=== PATIENT | male | born 1945 | race Caucasian/White ===

== ENCOUNTER 2018-09-14 23:15 | Inpatient (IN) | payer MEDICARE, MEDICAID ==
[~2018-09-14] VITALS: Ht 175.3 cm; Wt 68.0 kg
[2018-09-14] MEDS ORDERED: normal saline 1000ml 1,000 ML IV ONE (23:50)
[2018-09-14] MEDS ORDERED: CALC-855 PO (23:57)
[2018-09-14] MEDS ORDERED: CHOL10002 PO (23:57)
[2018-09-14] MEDS ORDERED: ASPI-1265 PO (23:57)
[2018-09-14] MEDS ORDERED: ALBU8.5H8 INH (23:57)
[2018-09-14] MEDS ORDERED: TIOT4MIS5 INH (23:57)
[2018-09-14] MEDS ORDERED: IPRA3AMP9 IH (23:57)
[2018-09-14] MEDS ORDERED: ATOR80TA PO (23:57)
[2018-09-14] MEDS ORDERED: BUPR150T8 PO (23:57)
[2018-09-14] MEDS ORDERED: FLUT1DIS4 INH (23:57)
[2018-09-14] MEDS ORDERED: LISI-600 PO (23:57)
[2018-09-14] MEDS ORDERED: LORA10TA61 PO (23:57)
[2018-09-14] MEDS ORDERED: MELA3TAB64 PO (23:57)
[2018-09-14] MEDS ORDERED: LINA5TAB4 PO (23:57)
[2018-09-14] MEDS ORDERED: PIOG30TA71 PO (23:57)
[2018-09-15] VITALS (19 sets, daily range): BP systolic 123–166; BP diastolic 36–79
[2018-09-15 00:09] LABS: CLARITY,URINE CLEAR (Clear); COLOR,URINE YELLOW (Yellow); GLUCOSE, URINE 250 mg/dl (Neg); KETONES,URINE TRACE mg/dl (Neg); LEUKOCYTE ESTERASE ,URINE NEGATIVE (Neg); NITRITES, URINE NEGATIVE (Neg); OCCULT BLOOD,URINE LARGE (Neg); PH,URINE 5.5 (4.8-8.0); PROTEIN,URINE >=300 mg/dl (Neg); UROBILINOGEN,URINE 0.2 E.U/dL (0.2-1.0)
[2018-09-15 00:10] LABS: UA COLLECTION TYPE FOLEY CATH
[2018-09-15 00:16] LABS: BACTERIA,URINE NONE SEEN /HPF (Neg); FINE GRANULAR CAST 0-3 /LPF (NEGATIVE); HYALINE CASTS 0-3 /LPF (NEGATIVE); MUCUS STRANDS NONE SEEN /LPF (Neg); SQUAMOUS EPITHELIAL CELL,UR NONE SEEN /LPF (FEW); TRANSITIONAL EPI CELLS,URINE FEW /HPF; WBC,URINE 0-4 /HPF (0-4)
--- NOTE | 2018-09-15 00:29 | NUR ---
Patient family contact information: Virgen (Granddaughter) [phone] and Kiran [phone]
[2018-09-15] MEDS ORDERED: morphine 4 MG/ML inj SYRINge IV ONE (00:40)
[2018-09-15] MEDS ORDERED: morphine 2 MG/ML inj. syringe IV PRN (00:40)
--- NOTE | 2018-09-15 00:48 | NUR ---
Patient transferred to ortho bed. Patient complains of increased pain. 4mg of morphine given. Will continue to monitor need for addition medications.
[2018-09-15] MEDS: normal saline 1000ml 1,000 ML IV SCH ×3 (02:14→22:57)
[2018-09-15] MEDS ORDERED: HYDROmorphone 1 mg/ml syringe IV PRN (02:15)
[2018-09-15] MEDS ORDERED: bisacodyl 10mg suppository rectal RC PRN (02:15)
[2018-09-15] MEDS ORDERED: acetaminophen 325mg tablet PO PRN (02:15)
[2018-09-15] MEDS ORDERED: magnesium hydroxide 30ml (MOM) UD suspension PO PRN (02:15)
[2018-09-15] MEDS ORDERED: potassium Cl 20 mEq SR tablet PO PRN ×2 (02:15)
[2018-09-15] MEDS ORDERED: magnesium 4gm in 100ml NS 100 ML IV PRN (02:15)
[2018-09-15] MEDS ORDERED: magnesium 2GM in 50ml NS 50 ML IV PRN (02:15)
[2018-09-15] MEDS ORDERED: magnesium Cl slow-release 64mg tablet PO PRN (02:15)
[2018-09-15] MEDS ORDERED: ondansetron/PF 4mg/2ml inj IV PRN (02:15)
[2018-09-15] MEDS ORDERED: potassium CL 10mEq/100ml bag 100 ML IV PRN ×2 (02:15)
[2018-09-15] MEDS ORDERED: dextrose 50%-water 50ml dispensing syringe IV PRN ×2 (02:30)
[2018-09-15] MEDS ORDERED: MESSAGE TO PHARMACY PO ONE (02:30)
[2018-09-15] MEDS ORDERED: insulin Lispro (HumaLOG) vial - multi-dose SQ SCH (02:30)
[2018-09-15] MEDS ORDERED: glucagon, human recombinant 1mg kit SUBCUT PRN (02:30)
[2018-09-15] MEDS ORDERED: dextrose ORAL solution 15 GM/59 ML bottle PO PRN ×2 (02:30)
--- NOTE | 2018-09-15 05:45 | NUR ---
In agreement with all charting and medication administration reviewed for this shift completed by Meche BARRAGAN.
--- NOTE | 2018-09-15 06:00 | NUR ---
Gave report to Ann BARRAGAN (Flonaty from Critical Care) with Sharon BARRAGAN. Addendum: 09/15/18 at 0622 by Meche Rangel RN report to Rubi BARRAGAN.
[2018-09-15 06:37] LABS: BASOPHILS % (AUTO) 0.3 % (0-1); EOSINOPHILS % (AUTO) 0.1 % (0-6); HEMOGLOBIN 11.3 g/dl (14.0-17.9); LYMPHOCYTES # (AUTO) 0.8 X10'3 (1.1-4.8); LYMPHOCYTES % (AUTO) 5.6 % (21-51); MEAN CORPUSCULAR HGB CONC 33.3 g/dL (33.0-36.5); MEAN CORPUSCULAR VOLUME 87.1 FL (78-98); MEAN PLATELET VOLUME 9.3 FL (7.4-10.4); MONOCYTES # (AUTO) 1.3 X10'3 (0-0.9); MONOCYTES % (AUTO) 9.6 % (2-12); NEUTROPHILS # (AUTO) 11.5 X10'3 (1.8-7.7); NEUTROPHILS % (AUTO) 84.4 % (42-75); PLATELET COUNT 168 X10'3 (140-440); RED CELL DISTRIBUTION WIDTH 15.5 % (11.5-14.5); WHITE BLOOD COUNT 13.6 X10'3 (4.5-11.0)
[2018-09-15 06:50] LABS: ALBUMIN 1.7 G/DL (3.4-5.0); ANION GAP 10 (8-16); BLOOD UREA NITROGEN 35 MG/DL (7-18); CALCIUM 8.1 MG/DL (8.5-10.1); CHLORIDE 111 MMOL/L (99-107); CREATININE 1.84 MG/DL (0.60-1.10); GLUCOSE 171 MG/DL (70-104); MAGNESIUM 1.3 MG/DL (1.5-2.4); POTASSIUM 4.3 MMOL/L (3.5-5.1); SODIUM 146 MMOL/L (135-145); TOTAL CARBON DIOXIDE 25.3 MMOL/L (24-32); eGFR 36 ML/MIN
[2018-09-15] MEDS: K and/or MAG REPLACEMENT MC SCH (08:00)
[2018-09-15] MEDS: docusate sod 100mg capsule PO SCH ×2 (08:00→19:21)
[2018-09-15] MEDS ORDERED: ringers solution, lacted 1,000 ML IV ONE (08:04)
[2018-09-15] MEDS ORDERED: pneumococcal 23-VAL P-sac vacc 25 mcg/0.5ml vial IMVAC ONE (10:00)
--- NOTE | 2018-09-15 12:58 | NUR ---
[facility] [place] Ancef w/pt chart pre-op.
[2018-09-15] MEDS ORDERED: ceFAZolin 1GM/D5W- ADD-VANTAGE 50 ML IV ONE (13:00)
--- NOTE | 2018-09-15 13:49 | NUR ---
DM Consult: Pt admit s/p fall w/ L hip fx NPO to OR today for repair. Hx DM A1C 7.0; pt will need DM/high protein eds once stable post-op. Will continue to monitor. Addendum: 09/15/18 at [address] Amended: Links added.
[2018-09-15] MEDS ORDERED: ipratropium/albuterol 3ml nebule NEB ONE (14:10)
[2018-09-15] MEDS ORDERED: midazolam 2 mg/2 ml injection ONE (15:01)
[2018-09-15] MEDS ORDERED: fentaNYL/PF 50MCG/1 ML 2ML syringe ONE (15:01)
[2018-09-15] MEDS ORDERED: ceFAZolin 1000mg inj ONE (15:19)
[2018-09-15] MEDS ORDERED: BUPIVAcaine/PF 7.5mg/ml (0.75%) 10ml vial ONE (15:38)
--- NOTE | 2018-09-15 15:45 | NUR ---
Received from OR via , accompanied by Anesthesiologist DR WHITAKER and report given by Anesthesiolgist. PT IS AWAKE, ALERT, MOVING BILAT UE'S, LE'S UNABLE TO MOVE DUE TO SPINAL, SENSATION AT T10, ACCUCHECK COMPLETED (139), TENORIO TO GRAVITY, CLEAR YELLOW, PIV RIGHT FA 20G, +2 PEDAL PULSES BILAT, SCD'S, VSS, NO C/O PAIN
[2018-09-15] MEDS: ceFAZolin 1GM/D5W- ADD-VANTAGE 50 ML IV SCH ×2 (16:00→23:03)
--- NOTE | 2018-09-15 18:15 | NUR ---
Received report from Rubi BARRAGAN, assumed care of patient with Sharon BARRAGAN
[2018-09-15] MEDS: traMADol 50MG tablet PO PRN (19:21)
[2018-09-15] MEDS: HYDROmorphone inj. 0.5 MG/0.5 ML DISP.SYRIN IV PRN (20:34)
[2018-09-15] MEDS: famotidine 20mg tablet PO SCH (20:35)
[2018-09-15] MEDS: insulin glargine (Lantus) pen - multi-dose SQ SCH (20:43)
[2018-09-16 02:00] VITALS: BP 152/70
[2018-09-16] MEDS: traMADol 50MG tablet PO PRN ×3 (02:52→18:25)
--- NOTE | 2018-09-16 05:40 | NUR ---
In agreement with all charting and medication administration reviewed for this shift completed by Meche BARRAGAN.
[2018-09-16 05:51] LABS: ALBUMIN 1.5 G/DL (3.4-5.0); ANION GAP 11 (8-16); BLOOD UREA NITROGEN 41 MG/DL (7-18); BUN/CREATININE RATIO 20.2 (5.4-32.0); CALCIUM 7.9 MG/DL (8.5-10.1); CHLORIDE 110 MMOL/L (99-107); CREATININE 2.03 MG/DL (0.60-1.10); GLUCOSE 172 MG/DL (70-104); MAGNESIUM 1.2 MG/DL (1.5-2.4); POTASSIUM 4.5 MMOL/L (3.5-5.1); SODIUM 142 MMOL/L (135-145); eGFR 32 ML/MIN
[2018-09-16 06:00] VITALS: BP 142/67
[2018-09-16] MEDS ORDERED: famotidine 20mg tablet PO ONE (06:00)
--- NOTE | 2018-09-16 06:00 | NUR ---
Gave report to Jory BARRAGAN with hSaron BARRAAGN.
[2018-09-16 06:04] LABS: BASOPHILS # (AUTO) 0.1 X10'3 (0-0.2); BASOPHILS % (AUTO) 0.6 % (0-1); EOSINOPHILS % (AUTO) 0.1 % (0-6); HEMOGLOBIN 10.1 g/dl (14.0-17.9); LYMPHOCYTES # (AUTO) 0.6 X10'3 (1.1-4.8); LYMPHOCYTES % (AUTO) 3.5 % (21-51); MEAN CORPUSCULAR HEMOGLOBIN 28.8 PG (27.0-31.0); MEAN CORPUSCULAR HGB CONC 32.7 g/dL (33.0-36.5); MEAN CORPUSCULAR VOLUME 88.2 FL (78-98); MEAN PLATELET VOLUME 9.8 FL (7.4-10.4); MONOCYTES # (AUTO) 1.4 X10'3 (0-0.9); MONOCYTES % (AUTO) 8.1 % (2-12); NEUTROPHILS # (AUTO) 15.2 X10'3 (1.8-7.7); NEUTROPHILS % (AUTO) 87.7 % (42-75); PLATELET COUNT 150 X10'3 (140-440); RED BLOOD COUNT 3.51 X10'6 (4.70-6.10); RED CELL DISTRIBUTION WIDTH 15.3 % (11.5-14.5); WHITE BLOOD COUNT 17.4 X10'3 (4.5-11.0)
--- NOTE | 2018-09-16 06:05 | NUR ---
Patient in room ORTHO 4021. I have received report from Sharon/Meche RNs, and had the opportunity to ask questions and assume patient care.
[2018-09-16] MEDS: docusate sod 100mg capsule PO SCH (07:28)
[2018-09-16] MEDS: enoxaparin 40mg/0.4ml syringe SQ SCH (07:28)
[2018-09-16] MEDS: K and/or MAG REPLACEMENT MC SCH (08:00)
[2018-09-16 09:40] VITALS: BP 153/54
[2018-09-16] MEDS ORDERED: NUT.TX.GLUC.INTOLER,LAC-FR,SOY (GLUCERNA) 237 ML PO SCH (13:00)
[2018-09-16 14:00] VITALS: BP 154/64
--- NOTE | 2018-09-16 14:12 | NUR ---
F/u: Pt/family seen by [facility] for written/verbal DM/high protein eds w/ RD contact information provided. Pt agrees to cj PEPE; notified. Pending MD verification prior to being able to send on trays. Pt is aware of this. Will continue to monitor. Addendum: 09/16/18 at [address] Amended: Links added.
[2018-09-16] MEDS: HYDROmorphone inj. 0.5 MG/0.5 ML DISP.SYRIN IV PRN (14:55)
[2018-09-16] MEDS: normal saline 1000ml 1,000 ML IV SCH (14:59)
[2018-09-16 18:00] VITALS: BP 149/64
--- NOTE | 2018-09-16 18:15 | NUR ---
paged Dr. Panda to reconcile home meds. no response.
--- NOTE | 2018-09-16 18:21 | NUR ---
PAGER ID: [phone] MESSAGE: Leisa Panda, RE: Mr. Espinoza in [id number], please reconcile home meds, thank you Jory
--- NOTE | 2018-09-16 18:21 | NUR ---
Problems reprioritized. Patient report given, questions answered & plan of care reviewed with Elsie BARRAGAN.
[2018-09-16] MEDS: aspirin 81mg tab.chew PO SCH (21:00)
[2018-09-16] MEDS: buPROPion SR 150mg tablet PO SCH (21:00)
[2018-09-16] MEDS: lisinopril 2.5mg tablet PO SCH (21:00)
[2018-09-16] MEDS: Melatonin 3mg tablet PO SCH (21:00)
[2018-09-16 22:00] VITALS: BP 130/55
[2018-09-16] MEDS ORDERED: albuterol 2.5 MG/3 ML nebule NEB PRN (23:15)
[2018-09-16] MEDS: insulin glargine (Lantus) pen - multi-dose SQ SCH (23:23)
[2018-09-17] MEDS: docusate sod 100mg capsule PO SCH ×3 (00:07→21:02)
[2018-09-17] MEDS: famotidine 20mg tablet PO SCH ×2 (00:08→21:03)
[2018-09-17] MEDS: traMADol 50MG tablet PO PRN ×4 (00:08→17:38)
[2018-09-17] MEDS ORDERED: ipratropium/albuterol 3ml nebule IH SCH (02:00)
[2018-09-17] MEDS: ipratropium 0.5 MG/2.5ML nebule IH SCH ×4 (03:18→20:25)
[2018-09-17] MEDS: albuterol 2.5 MG/3 ML nebule NEB SCH ×4 (03:18→20:25)
--- NOTE | 2018-09-17 05:30 | NUR ---
pt retaining 735ml urine. placed 16 danish F/C per SCIP protocol. pt tolerated well.
[2018-09-17 06:00] VITALS: BP 180/66
--- NOTE | 2018-09-17 06:06 | NUR ---
reported to days. noted pt painful with movement. ultram given for pain.
[2018-09-17] MEDS: normal saline 1000ml 1,000 ML IV SCH (06:10)
[2018-09-17 06:26] LABS: ALBUMIN 1.5 G/DL (3.4-5.0); ANION GAP 9 (8-16); BLOOD UREA NITROGEN 45 MG/DL (7-18); BUN/CREATININE RATIO 22.3 (5.4-32.0); CALCIUM 8.2 MG/DL (8.5-10.1); CHLORIDE 108 MMOL/L (99-107); CREATININE 2.02 MG/DL (0.60-1.10); GLUCOSE 105 MG/DL (70-104); MAGNESIUM 1.6 MG/DL (1.5-2.4); POTASSIUM 3.8 MMOL/L (3.5-5.1); SODIUM 140 MMOL/L (135-145); TOTAL CARBON DIOXIDE 22.9 MMOL/L (24-32); eGFR 33 ML/MIN
[2018-09-17 06:28] LABS: BASOPHILS % (AUTO) 0.4 % (0-1); EOSINOPHILS # (AUTO) 0.3 X10'3 (0-0.9); EOSINOPHILS % (AUTO) 2.7 % (0-6); HEMATOCRIT 26.9 % (42.0-52.0); HEMOGLOBIN 9.1 g/dl (14.0-17.9); LYMPHOCYTES # (AUTO) 0.9 X10'3 (1.1-4.8); LYMPHOCYTES % (AUTO) 8.9 % (21-51); MEAN CORPUSCULAR HEMOGLOBIN 29.5 PG (27.0-31.0); MEAN CORPUSCULAR HGB CONC 33.8 g/dL (33.0-36.5); MEAN CORPUSCULAR VOLUME 87.3 FL (78-98); MEAN PLATELET VOLUME 9.6 FL (7.4-10.4); MONOCYTES # (AUTO) 1.1 X10'3 (0-0.9); MONOCYTES % (AUTO) 11.3 % (2-12); NEUTROPHILS # (AUTO) 7.5 X10'3 (1.8-7.7); NEUTROPHILS % (AUTO) 76.7 % (42-75); PLATELET COUNT 130 X10'3 (140-440); RED BLOOD COUNT 3.08 X10'6 (4.70-6.10); RED CELL DISTRIBUTION WIDTH 15.1 % (11.5-14.5); WHITE BLOOD COUNT 9.7 X10'3 (4.5-11.0)
--- NOTE | 2018-09-17 06:52 | NUR ---
Patient in room ORTHO 4021. I have received report from Elsie BARRAGAN and had the opportunity to ask questions and assume patient care.
[2018-09-17] MEDS: K and/or MAG REPLACEMENT MC SCH (07:07)
[2018-09-17] MEDS: loratadine 10mg tablet PO SCH (07:19)
[2018-09-17] MEDS: lisinopril 2.5mg tablet PO SCH (07:19)
[2018-09-17] MEDS: calcium carbonate/vitamin D3 tablet PO SCH (07:20)
[2018-09-17] MEDS: buPROPion SR 150mg tablet PO SCH (07:20)
[2018-09-17] MEDS: vitamin D (cholecalciferol) 1,000 unit tablet PO SCH (07:21)
[2018-09-17] MEDS: enoxaparin 40mg/0.4ml syringe SQ SCH (07:22)
[2018-09-17] MEDS: lactose-reduced food (Ensure Enlive) - 237ml bottle PO SCH ×3 (08:00→18:35)
[2018-09-17] MEDS: aspirin 81mg tab.chew PO SCH (08:00)
[2018-09-17] MEDS: budesonide 0.5mg/2ml UD nebule IH SCH ×2 (08:23→20:25)
[2018-09-17 10:00] VITALS: BP 140/60
[2018-09-17 18:00] VITALS: BP 150/49
--- NOTE | 2018-09-17 18:32 | NUR ---
Problems reprioritized. Patient report given, questions answered & plan of care reviewed with Elsie BARRAGAN.
[2018-09-17] MEDS ORDERED: atorvastatin 20mg tablet PO SCH (21:00)
[2018-09-17] MEDS: insulin glargine (Lantus) pen - multi-dose SQ SCH (21:00)
[2018-09-17] MEDS: Melatonin 3mg tablet PO SCH (21:02)
[2018-09-17 22:00] VITALS: BP 159/66
[2018-09-18] MEDS: normal saline 1000ml 1,000 ML IV SCH (01:44)
[2018-09-18] MEDS: ipratropium 0.5 MG/2.5ML nebule IH SCH ×2 (03:12→08:41)
[2018-09-18] MEDS: albuterol 2.5 MG/3 ML nebule NEB SCH ×2 (03:13→08:40)
[2018-09-18] MEDS: traMADol 50MG tablet PO PRN ×2 (05:03→11:39)
[2018-09-18 06:00] VITALS: BP 168/68
[2018-09-18 06:13] LABS: BASOPHILS % (AUTO) 0.5 % (0-1); EOSINOPHILS # (AUTO) 0.3 X10'3 (0-0.9); EOSINOPHILS % (AUTO) 3.4 % (0-6); HEMATOCRIT 25.1 % (42.0-52.0); HEMOGLOBIN 8.5 g/dl (14.0-17.9); LYMPHOCYTES # (AUTO) 0.5 X10'3 (1.1-4.8); LYMPHOCYTES % (AUTO) 6.5 % (21-51); MEAN CORPUSCULAR HEMOGLOBIN 30.1 PG (27.0-31.0); MEAN CORPUSCULAR VOLUME 88.5 FL (78-98); MEAN PLATELET VOLUME 9.4 FL (7.4-10.4); MONOCYTES # (AUTO) 0.9 X10'3 (0-0.9); MONOCYTES % (AUTO) 11.1 % (2-12); NEUTROPHILS % (AUTO) 78.5 % (42-75); PLATELET COUNT 134 X10'3 (140-440); RED BLOOD COUNT 2.83 X10'6 (4.70-6.10); RED CELL DISTRIBUTION WIDTH 14.5 % (11.5-14.5); WHITE BLOOD COUNT 7.7 X10'3 (4.5-11.0)
--- NOTE | 2018-09-18 06:29 | NUR ---
reported to days. noted pt resting. ultram given. PT to work with him. anticipate transfer to rehab at 1215 today.
--- NOTE | 2018-09-18 06:43 | NUR ---
Patient in room ORTHO 4021. I have received report from Elsie BARRAGAN and had the opportunity to ask questions and assume patient care.
[2018-09-18 06:44] LABS: ALBUMIN 1.3 G/DL (3.4-5.0); ANION GAP 7 (8-16); BLOOD UREA NITROGEN 39 MG/DL (7-18); BUN/CREATININE RATIO 21.7 (5.4-32.0); CALCIUM 8.1 MG/DL (8.5-10.1); CHLORIDE 110 MMOL/L (99-107); GLUCOSE 140 MG/DL (70-104); MAGNESIUM 1.6 MG/DL (1.5-2.4); POTASSIUM 4.1 MMOL/L (3.5-5.1); SODIUM 140 MMOL/L (135-145); TOTAL CARBON DIOXIDE 23.3 MMOL/L (24-32); eGFR 37 ML/MIN
[2018-09-18] MEDS: K and/or MAG REPLACEMENT MC SCH (08:00)
[2018-09-18] MEDS: lactose-reduced food (Ensure Enlive) - 237ml bottle PO SCH (08:18)
[2018-09-18] MEDS: calcium carbonate/vitamin D3 tablet PO SCH (08:24)
[2018-09-18] MEDS: buPROPion SR 150mg tablet PO SCH (08:24)
[2018-09-18] MEDS: lisinopril 2.5mg tablet PO SCH (08:24)
[2018-09-18] MEDS: vitamin D (cholecalciferol) 1,000 unit tablet PO SCH (08:24)
[2018-09-18] MEDS: docusate sod 100mg capsule PO SCH (08:25)
[2018-09-18] MEDS: loratadine 10mg tablet PO SCH (08:25)
[2018-09-18] MEDS: aspirin 81mg tab.chew PO SCH (08:25)
[2018-09-18] MEDS: enoxaparin 40mg/0.4ml syringe SQ SCH (08:25)
[2018-09-18] MEDS: budesonide 0.5mg/2ml UD nebule IH SCH (08:40)
[2018-09-18 10:00] VITALS: BP 158/63
--- NOTE | 2018-09-18 11:15 | NUR ---
report given to Emile SINGH at [facility]
--- NOTE | 2018-09-18 12:53 | NUR ---
Patient discharged to [facility] in [facility], all belongings sent with patient, patient stable upon
== END 2018-09-18 13:03 | DRG 481 ==
LOC: ER 23:16 → ORTHO 4S 09-15 01:52 → CMPBEDREQ 09-15 02:00
PROVIDERS: ADMIT Internal Medicine; ATTEND Internal Medicine
PROC: BQ111ZZ Fluoroscopy of Left Hip using Low Osmolar Contrast (ICD-10-PCS; 2018-09-15)
PROC: 0QS706Z Reposition Left Upper Femur with Intramedullary Internal Fixation Device, Open Approach (ICD-10-PCS; principal; 2018-09-15 14:55)
DX: S72.142A Displaced intertrochanteric fracture of left femur, initial encounter for closed fracture (principal); N17.9 Acute kidney failure, unspecified; D62 Acute posthemorrhagic anemia; J44.9 Chronic obstructive pulmonary disease, unspecified; N18.9 Chronic kidney disease, unspecified; W01.0XXA Fall on same level from slipping, tripping and stumbling without subsequent striking against object, initial encounter; Z60.2 Problems related to living alone; F32.9 Major depressive disorder, single episode, unspecified; D72.829 Elevated white blood cell count, unspecified; H54.8 Legal blindness, as defined in USA; D63.8 Anemia in other chronic diseases classified elsewhere; E11.22 Type 2 diabetes mellitus with diabetic chronic kidney disease; E78.5 Hyperlipidemia, unspecified; I12.9 Hypertensive chronic kidney disease with stage 1 through stage 4 chronic kidney disease, or unspecified chronic kidney disease; Z87.891 Personal history of nicotine dependence; Z79.84 Long term (current) use of oral hypoglycemic drugs; Y93.89 Activity, other specified; Y92.89 Other specified places as the place of occurrence of the external cause; Y99.8 Other external cause status; Z88.5 Allergy status to narcotic agent; Z79.899 Other long term (current) drug therapy; Z79.82 Long term (current) use of aspirin
CPT/HCPCS: 36415; 71045; 73502; 76000; 80048; 81001; 82948; 83036; 83735; 85025; 87081; 93005; 93306; 94640; 94760; 96361; 96374; 97110; 97162; 97530; 99285; A4618; A6258; A6402; A7000; C1713; G0378; J0690; J1170; J1650; J1815; J2250; J2270; J3010; J3370; J3490; J7030; J7120; J7626